=== PATIENT | male | born 2000 | race Caucasian/White ===

== ENCOUNTER 2021-10-09 16:21 | Emergency (ER) | payer BC | END 2021-10-09 17:55 | disposition home or self-care (01) | LOC: MADERS 16:21 | DX: S50.12XA Contusion of left forearm, initial encounter (principal); W23.0XXA Caught, crushed, jammed, or pinched between moving objects, initial encounter ==

== ENCOUNTER 2021-10-21 20:59 | Emergency (ER) | payer BC ==
[2021-10-21] MEDS ORDERED: Morphine 4 MG/ML VIAL ONE (21:19)
[2021-10-21] MEDS ORDERED: HYDROcodone/Acetaminophen 10/325 mg Tablet ONE (22:31)
[2021-10-21] MEDS ORDERED: AMOXicillin 250 MG CAP ONE (22:31)
== END 2021-10-21 23:07 | disposition home or self-care (01) ==
LOC: MADERS 20:59
DX: S02.841A Fracture of lateral orbital wall, right side, initial encounter for closed fracture (principal); S02.40CA Maxillary fracture, right side, initial encounter for closed fracture; S02.40EA Zygomatic fracture, right side, initial encounter for closed fracture; W55.12XA Struck by horse, initial encounter
CPT/HCPCS: 70450; 70486; 96374; J2270